=== PATIENT | female | born 1945 | race Caucasian/White ===

== ENCOUNTER 2019-03-19 05:53 | Inpatient (IN) | payer MEDICARE ==
[2019-03-14 15:15] LABS: BASOPHILS % 0.6 % (0.0-1.0); EOSINOPHILS # (AUTO) 0.1 (0.0-0.4); EOSINOPHILS % 1.3 % (0.0-6.0); HEMATOCRIT 39.8 % (34.2-44.1); HEMOGLOBIN 13.5 g/dL (12.0-16.0); LYMPHOCYTES # (AUTO) 1.7 (1.0-3.2); LYMPHOCYTES % 26.3 % (18.0-39.1); MEAN CORPUSCULAR HEMOGLOBIN 32.5 pg (28-32); MEAN CORPUSCULAR HGB CONC 33.9 g/dL (31-35); MEAN CORPUSCULAR VOLUME 95.9 fL (81-99); MONOCYTES # (AUTO) 0.6 (0.2-0.8); NEUTROPHILS # (AUTO) 3.9 (2.1-6.9); NEUTROPHILS % 61.5 % (38.7-80.0); PLATELET COUNT 208 x10e3/uL (140-360); RED BLOOD COUNT 4.15 x10e6/uL (3.6-5.1); RED CELL DISTRIBUTION WIDTH 12.8 % (11.7-14.4)
[2019-03-14 15:26] LABS: INR 0.91; PROTHROMBIN TIME 12.7 seconds (11.9-14.5)
[2019-03-14 15:27] LABS: PARTIAL THROMBOPLASTIN TIME 32.8 seconds (23.8-35.5)
[2019-03-14 15:29] LABS: ANION GAP 11.9 mmol/L (8-16); BLOOD UREA NITROGEN 13 mg/dL (7-26); BUN/CREATININE RATIO 16 (6-25); CARBON DIOXIDE 26 mmol/L (22-29); CHLORIDE 99 mmol/L (98-107); CREATININE, SERUM 0.82 mg/dL (0.57-1.11); EST GLOMERULAR FILTRATION RATE > 60 ML/MIN (60-); GLUCOSE 96 mg/dL (74-118); POTASSIUM 3.9 mmol/L (3.5-5.1); SODIUM 133 mmol/L (136-145)
--- NOTE | 2019-03-14 17:27 | Diagnostic Imaging Report ---
EXAMINATION: CHEST 2 VIEWS INDICATION: Pre-operative COMPARISON: None FINDINGS: LINES/TUBES:None LUNGS:The lungs are well-inflated. No focal consolidation or pulmonary edema. PLEURA:No pleural effusion or pneumothorax. MEDIASTINUM:The cardiomediastinal silhouette appears normal in size and shape. BONES/SOFT TISSUES:No acute osseous injury. ABDOMEN:No free air under the diaphragm. IMPRESSION: No focal pneumonia or pulmonary edema. Signed by: Juan Alberto Hunter MD on 03/14/2019 5:24 PM
[~2019-03-19] VITALS: Ht 160 cm; Wt 90.7 kg
[~2019-03-19 05:53] MED LIST: LATANOPROST2.5 ML OP
--- OUTSIDE RECORDS SUMMARY | 2019-03-19 06:01 | XMS REPORT ---
Author Author [facility] Address Unknown Phone Unavailable Care Team Providers Care Lap Welder Name Role Phone GARY ORTIZ Unavailable Unavailable Problems This patient has no known problems. Allergies, Adverse Reactions, Alerts This patient has no known allergies or adverse reactions. Medications This patient has no known medications. Results Test Description Test Time Test Comments Text Results Atomic Results Result Comments CHEST 2 VIEWS 2019-03-14 17:23:00 [place] [address] Patient Name: SID ALBRIGHT MR #: [id number] : 1945 Age/Sex: 73/F Req #: [id number] Adm Physician: Ordered by: GARY ORTIZ MD Report #: [id number] Location: OR Room/Bed: Procedure: [id number] DX/CHEST 2 VIEWS Exam Date: 03/14/19 Exam Time: 1535 REPORT STATUS: Signed EXAMINATION: CHEST 2 VIEWS INDICATION: Pre-operative COMPARISON: None FINDINGS: LINES/TUBES:None LUNGS:The lungs are well-inflated. No focal consolidation or pulmonary edema. PLEURA:No pleural effusion or pneumothorax. MEDIASTINUM:The cardiomediastinal silhouette appears normal in size and shape. BONES/SOFT TISSUES:No acute osseous injury. ABDOMEN:No free air under the diaphragm. IMPRESSION: No focal pneumonia or pulmonary edema. Signed by: Jocelyn Shi MD on 03/14/2019 5:24 PM Dictated By: JOCELYN SHI MD 23 Transcribed By: RONNI Leblanc on 03/14/191723 COPY TO: GARY ORTIZ MD BREAST ULTRASOUND RIGHT 2019-02-12 15:24:43 - BREAST ULTRASOUND RIGHTULTRASOUND OF RIGHT BREAST AND RIGHT AXILLA: 02/12/2019CLINICAL: Right breast itching sensation. Comparison is made to exam dated 02/12/2019 mammogram - [facility]. Color flow, real-time, and Doppler ultrasound of the right breast and axilla were performed. Mooney scale images of the real-time examination were reviewed. No abnormalities were seen sonographically in the right breast or the right axilla. The patient reports that her symptoms have resolved.IMPRESSION: BENIGN There is no sonographic evidence of malignancy. Resume annual screening mammography in one year. Ha Wolfe M.D. et/:02/12/2019 15:24:43 Entry: [place] - 02/13/2019 14:40:25Imaging Technologist: Loni Mora, [facility] sent: BIRADS 1-2 Combo FU Letter Ultrasound BI-RADS: 2 Benign DIAG MAMM BILATERAL ARTEMIO CAD DIGITAL 2019-02-12 15:23:54 - DIAG MAMM BILATERAL ARTEMIO CAD DIGITALBILATERAL DIGITAL DIAGNOSTIC MAMMOGRAM 3D/2D WITH CAD: 02/12/2019CLINICAL: Abnormal clinical breast exam. Digital breast tomosynthesis was performed in addition to routine CC and MLO views. Current mammographic images were evaluated by either a Smarty Ring M-Vu or a Bulu Box ImageChecker CAD (computer aided detection system). No prior exams were available for pedroi son. The tissue of both breasts is heterogeneously dense. This may lower the sensitivity of mammography. There is a benign calcification in the left breast. No suspicious mass, architectural distortion, malignant type calcification, or lymph node abnormality detected. IMPRESSION: INCOMPLETE: ADDITIONAL IMAGING EVALUATION NEEDEDNo mammographic evidence of malignancy. Proceed to same day ultrasound.Ha Wolfe M.D. et/:02/12/2019 15:23:54 Entry: [place] - 02/13/2019 14:40:06Imaging Technologist: Tiana HERNANDEZ, [facility] BI-RADS: 0 Incomplete: Additional Imaging Evaluation Needed
[2019-03-19] MEDS ORDERED: CLINDAMYCIN 300MG 50 ML IV ONE (06:06)
[2019-03-19] MEDS ORDERED: GENTAMICIN 80MG/NS 100 ML 200 ML IV ONE (06:06)
[2019-03-19] MEDS ORDERED: PIPER-TAZ 3.375 GM 50 ML ONE (06:58)
[2019-03-19] MEDS ORDERED: B&O 60MG R/S 60 MG SUPP PR ONE (07:02)
[2019-03-19] MEDS ORDERED: IOPAMIDOL 300MG/ML 50ML INFUS..BTL IV ONE (07:02)
[2019-03-19] MEDS ORDERED: BACITRACIN 50,000 UNIT VIAL ONE (07:09)
[2019-03-19] MEDS ORDERED: BUPIVACAINE 0.25%/EPI 30ML SDV INJ ONE (07:09)
[2019-03-19] MEDS ORDERED: INDIGOTINDISULFONATE SODIUM 8 MG/1 ML IJ ONE (07:10)
[2019-03-19] MEDS ORDERED: SILVER SULFADIAZINE 50GM CREAM ONE (07:11)
[2019-03-19] MEDS ORDERED: ONDANSETRON HCL INJ 2MG/ML 2ML 2 MG/ML VIAL IV PRN (10:00)
[2019-03-19] MEDS ORDERED: MORPHINE SULFATE 1 MG/ML 30ML PCA IV PRN (10:00)
[2019-03-19] MEDS ORDERED: NALOXONE HCL INJ 0.4 MG/ML AMP IV PRN (10:00)
[2019-03-19] MEDS ORDERED: DIPHENHYDRAMINE HCL 25 MG CAP PO PRN (10:00)
--- NOTE | 2019-03-19 11:24 | NUR ---
Patient admitted to unit from PACU. Patient is post op bladder sling and cystocele repair. Vag packing in place. Some drainage noted. No c/o pain at this time. Lung ansari clear to auscultation. Bowel sounds present but hypoactive. No edema noted. Reyes catheter in place with clear pale urine noted. No s/s of distress noted. Right hand IV in place. IV fluids infusing. Patient tolerating clear liquids
[2019-03-19 12:04] VITALS: BP 126/63
[2019-03-19 12:13] VITALS: BP 126/63
[2019-03-19] MEDS: D5.45%NS/KCL 20MEQ 1,000 ML IV SCH ×2 (14:15→20:00)
[2019-03-19] MEDS ORDERED: ONDANSETRON HCL INJ 2MG/ML 2ML 2 MG/ML VIAL ONE (14:26)
[2019-03-19] MEDS ORDERED: PROPOFOL IV EMULSION 10 MG/ML 20 ML VIAL ONE (14:26)
[2019-03-19] MEDS ORDERED: EPHEDRINE SULFATE INJ 50 MG/10 ML SYR ONE (14:26)
[2019-03-19] MEDS ORDERED: LIDOCAINE HCL 2% LOCAL INJ 5 ML SDV VIAL INJ ONE (14:26)
[2019-03-19] MEDS ORDERED: ACETAMINOPHEN 1000 MG/100 ML IV ONE (14:26)
[2019-03-19] MEDS ORDERED: DEXAMETHASONE SOD PHOS INJ 4 MG/ML VIAL ONE (14:26)
[2019-03-19] MEDS ORDERED: SEVOFLURANE INHAL SOLN 250 ML PEN BTL ONE (14:26)
[2019-03-19] MEDS: PIPER-TAZ 3.375 GM 50 ML IV SCH ×2 (14:33→21:27)
[2019-03-19] MEDS ORDERED: FENTANYL CITRATE/PF 100MCG/2 ML INJ ONE (15:10)
[2019-03-19] MEDS: CLINDAMYCIN 300MG 50 ML IV SCH (16:20)
[2019-03-19 16:45] VITALS: BP 129/68
[2019-03-19] MEDS: DOCUSATE SODIUM 100 MG CAP PO SCH (17:39)
--- NOTE | 2019-03-19 19:00 | NUR ---
Bed side shift report taken from morning RnGovind in the bed.clear urine draining.stable condition.
[2019-03-19 20:00] VITALS: BP 114/62
[2019-03-19 20:53] VITALS: BP 114/62
[2019-03-19 23:56] VITALS: BP 100/56
[2019-03-20] VITALS (7 sets, daily range): BP systolic 112–129; BP diastolic 67–82
--- NOTE | 2019-03-20 00:04 | NUR ---
Assessment done.no resp.distress.pericare given.vag.pack in place.incision site is covered with band aid.iv fluid and morphine skate boarder infusing to right hand.Bed side shift report taken from morning Rn.Christaeing in the bed.family member at bed side.stable condition.
[2019-03-20] MEDS: CLINDAMYCIN 300MG 50 ML IV SCH ×3 (00:10→16:50)
[2019-03-20] MEDS: D5.45%NS/KCL 20MEQ 1,000 ML IV SCH ×3 (00:41→05:04)
--- NOTE | 2019-03-20 02:49 | Operative Report ---
DATE OF PROCEDURE: 03/19/2019 SURGEON: Vipul Barr MD PREOPERATIVE DIAGNOSES: 1. Large grade 4 cystocele. 2. Impending stress incontinence: 3. Urinary tract infection. POSTOPERATIVE DIAGNOSES: 1. Large grade 4 cystocele. 2. Impending stress incontinence: 3. Urinary tract infection. 4. Unavoidable cystotomy. OPERATION PERFORMED: 1. Complicated repair of cystocele (repair made complicated by the patient's severity of her cystocele and a tremendous amount of scarring and anatomical distortion in the area from previous gynecological surgery). 2. Utilization of graft and cystocele repair. 3. Pubovaginal sling utilizing homograft. 4. Cystorrhaphy (performed from the bladder opening). 5. Cystourethroscopy with bilateral ureteral catheterization and retrograde ureteropyelography (separate procedure performed for the urinary tract infections). 6. Interpretation of retrograde ureteropyelography. 7. Supervision of fluoroscopy, no radiologist present. 8. Interpretation of cystography. REFRIGERATOR ROOM CLERK: Jane Barr MD CLINICAL SUMMARY: Rosie Oliver is a 73-year-old woman with the above preoperative diagnoses. She is brought for the above procedure. She is aware of the risks of bleeding, infection, injury to adjacent structures, need for additional procedures and elected to proceed. OPERATIVE PROCEDURE IN DETAIL: Informed consent was verified. Rosie Oliver was properly identified, taken to the operating room, placed on the operating room table in supine position. Anesthesia was uneventfully begun. The patient was then carefully and gently repositioned in dorsal lithotomy position with all pressure points well padded. Her abdomen, genitalia, and perineum were shaved, prepared, and draped in usual sterile fashion. Labial stay sutures were used. Vaginal speculum was placed. Marcaine with epinephrine was utilized to infiltrate submucosally to the anterior vaginal wall. A midline incision was then made and this incision was extended. The patient's cystocele was very large. Once the incision was made, it was obvious that there was rather significant amount of scarring and there was a significant amount of distortion of the anatomy in the vaginal wall from prior gynecological surgery. We very slowly and tediously carried out the dissection in order to try to create appropriate tissue planes. This was not fully accomplishable initially. As we dissected laterally on the left hand side, a gush of urine was noted. We then utilized sharp dissection to isolate that portion of the bladder and continued our dissection and our mobilization of the entire cystocele. We also pierced laterally in through the endopelvic fascia bilaterally and into the space of Retzius. The cystotomy was created with the finger and done with a sharp instrument while trying to peel the bladder that was plastered off the pelvic sidewall on the left hand side. The opening was identified, isolated, and reapproximated with 2-0 chromic suture in running fashion in 2 layers. This provided a watertight closure. We verified that this was a watertight repair. Copious irrigation was performed with an antibiotic irrigant. We then proceeded with performing cystocele repair. Plication type repair was performed approximating the two edges of the endopelvic fascia and bringing the bladder back to its normal anatomical position. Care was taken to avoid injury to the urethra. We completed the plicating type of cystocele repair from the cephalad most extent of the vaginal dissection to the region of the bladder neck. This cystocele repair provided yet a 3rd layer closure by fully covering the repair of the bladder. This made us feel fairly confident that placing a biological graft would not pose significant risk in light of opening the bladder with what was clear urine. The fascia sari was rehydrated with antibiotic irrigant and cut to shape. Helical PDS suture was then placed through each end. The bladder was ensured to be drained with Reyes catheter. We utilized the Aicenta needle system to bilaterally donohue through the entire abdominal wall musculature and then dragged along with it on either side of the suture repair of PDS suture. The sling was then secured into appropriate position with six interrupted chromic sutures. Thus, we ensured that it remained providing coverage and support and will minimize its probability of migration. Once the graft was put in, copious irrigation was performed. We then utilized the lateral suture passer of Yachia needles to take one strand of each PDS suture and tunneled it subcutaneously suprapubically to join its contralateral counterpart. The sling sutures were then tied down to the level of the skin and not to allowed to fall deep within the suprapubic fat pad thus ensuring a non-lifting, non-constricting sling. Copious irrigation was performed of all incisions. The vaginal wall was trimmed minimally. The vaginal incision was then approximated with heavy Vicryl suture in running fashion. The two stab wounds in the suprapubic region were approximated with 4-0 Monocryl suture. Reyes catheter was then withdrawn and cystoscopy was performed. Panendoscopy of the bladder revealed no suspicious mucosal lesions. No tumors or trabeculations were noted. We noted the area of the repair, which was lateral and distal to the right ureteral orifice. A ureteral catheter was used to cannulate each ureter and retrograde ureteral pyelograms were performed. Interpretation of retrograde ureteropyelography; contrast was instilled in retrograde fashion bilaterally. The right kidney caudal to the left kidney filled significantly. There was J hooking noted bilaterally. There was some fullness to the left side collecting system, but unobstructed drainage was observed fluoroscopically. The cystoscope was withdrawn. A Reyes catheter was placed. Contrast was then injected and performed cystography. Interpretation cystography; bladder wall was mildly trabeculated throughout. The Reyes catheter was in good position. It is impossible to online marketing coordinator reflux in this situation where the patient has had previous retrograde ureteropyelography. The calices were sharp. Drainage films from the retrograde pyelograms revealed there was a more capacious collecting system on the right, but all calices were delicate. The Reyes catheter was placed to drainage bag. Irrigation was again performed. Band-Aids were applied to the suprapubic stab wounds. Vaginal packing with Silvadene cream was then placed. Stay sutures were removed. The patient was uneventfully reversed from anesthesia and taken to recovery room in stable condition. No complications to the procedure. She tolerated the procedure well. We will proceed with routine postoperative care and lifelong urological followup. We will plan to leave the Reyes catheter in place for 10 to 14 days. Vipul Barr MD [place]/MODL /[id number] cc: Dr. Marissa Sylvester
[2019-03-20] MEDS: PIPER-TAZ 3.375 GM 50 ML IV SCH ×3 (05:50→21:20)
[2019-03-20 05:53] LABS: BASOPHILS % 0.1 % (0.0-1.0); EOSINOPHILS % 0.2 % (0.0-6.0); HEMATOCRIT 35.3 % (34.2-44.1); HEMOGLOBIN 11.9 g/dL (12.0-16.0); LYMPHOCYTES # (AUTO) 1.9 (1.0-3.2); LYMPHOCYTES % 21.8 % (18.0-39.1); MEAN CORPUSCULAR HEMOGLOBIN 32.4 pg (28-32); MEAN CORPUSCULAR HGB CONC 33.7 g/dL (31-35); MEAN CORPUSCULAR VOLUME 96.2 fL (81-99); MONOCYTES # (AUTO) 0.7 (0.2-0.8); MONOCYTES % 8.1 % (4.4-11.3); NEUTROPHILS # (AUTO) 5.9 (2.1-6.9); NEUTROPHILS % 68.9 % (38.7-80.0); PLATELET COUNT 186 x10e3/uL (140-360); RED BLOOD COUNT 3.67 x10e6/uL (3.6-5.1); RED CELL DISTRIBUTION WIDTH 12.7 % (11.7-14.4)
--- NOTE | 2019-03-20 06:00 | NUR ---
Assisted to use rest room for BM.vaginal pack came out itself.had very small amount of bm.
[2019-03-20 06:06] LABS: ANION GAP 10.6 mmol/L (8-16); BLOOD UREA NITROGEN 7 mg/dL (7-26); BUN/CREATININE RATIO 10 (6-25); CALCIUM 8.1 mg/dL (8.4-10.2); CARBON DIOXIDE 25 mmol/L (22-29); CHLORIDE 104 mmol/L (98-107); CREATININE, SERUM 0.73 mg/dL (0.57-1.11); EST GLOMERULAR FILTRATION RATE > 60 ML/MIN (60-); GLUCOSE 116 mg/dL (74-118); POTASSIUM 3.6 mmol/L (3.5-5.1); SODIUM 136 mmol/L (136-145)
--- NOTE | 2019-03-20 06:56 | NUR ---
Bed side shift report given to the oncoming Rn.stable condition.
--- NOTE | 2019-03-20 07:29 | NUR ---
Rcvd patient in report this am. Patient is asleep in bed at this time. No s/s of distress noted
[2019-03-20] MEDS: DOCUSATE SODIUM 100 MG CAP PO SCH ×2 (08:25→16:50)
[2019-03-20] MEDS ORDERED: MORPHINE SULFATE INJ 4 MG/ML INJ 1ML IV PRN (08:45)
[2019-03-20] MEDS: SODIUM CHLORIDE 0.9% 1000ML 1,000 ML IV SCH ×2 (10:25→17:21)
--- NOTE | 2019-03-20 12:21 | NUR ---
Patient is AAOx3. Post op cystocele repair. Reyes cath in place. Clear urine noted. No c/o pain. Lung ansari clear to auscultation. Bowel sounds present x4 and active. Patient ambulating with assist. No s/s of distress noted
[2019-03-20] MEDS: ACETAMINOPHEN/CODEINE 300MG - 30MG TAB PO PRN ×2 (12:33→16:51)
--- NOTE | 2019-03-20 15:11 | History and Physical ---
THERAPEUTIC STRATEGY LEAD: Vipul Barr MD. SURGEON: Vipul Barr MD. The patient is status post grade 4 cystocele repair. HISTORY OF PRESENT ILLNESS: The patient is a 73-year-old female, status post cystocele repair. The patient is status post postop day #1. The patient is currently stable. Please review operative note done by Dr. Vipul Barr. The patient has severe scarring from prior RUBBER TRIMMER surgery on findings of the operated operation. The patient had cystotomy and subsequent repair. She also has a cystocele repair as well. The patient is otherwise stable now. She is comfortable. No complication postoperative care. PAST MEDICAL HISTORY: Grade 4 cystocele, urinary stress incontinent, strabismus, and chronic lower back pain. PAST SURGICAL HISTORY: L4-L5 diskectomy, appendectomy, total abdominal hysterectomy, and the patient is now status post cystocele repair and cystotomy repair. SOCIAL HISTORY: The patient does not smoke or use alcohol. No regular drugs. ALLERGIES: WHEAT. HOME MEDICATIONS: List is reviewed. REVIEW OF SYSTEMS: As mentioned above. PHYSICAL EXAMINATION: VITAL SIGNS: Temperature is 98, blood pressure 114/76, pulse rate is 80, and respirations 18. GENERAL: The patient is not in acute distress. She is awake. HEENT: Normocephalic and atraumatic. Pupils reactive. Anicteric. NECK: Supple grossly. PULMONARY: Clear. CARDIOVASCULAR: Regular rate and rhythm. ABDOMEN: Soft, status post cystocele repair. EXTREMITIES: No cyanosis or edema. Reyes catheter in place. NEUROLOGIC: No gross focal deficit. LABORATORY DATA: WBC is 8.5, hemoglobin 12, hematocrit 32, and platelet 186. Chemistry; sodium 136, potassium 3.6, chloride 104, bicarb 25, BUN is 7, creatinine is 0.7, and glucose 116. IMPRESSION: 1. Postoperative day #1 status post grade 4 cystocele repair. 2. Cystotomy. 3. Stress incontinence. PLAN: Continue with postoperative care. We will discontinue FOREIGN EXCHANGE CLERK. Increase activity as tolerated. We will monitor the patient closely and repeat lab work. MD NELSY Solorzano/MODL /[id number]
--- NOTE | 2019-03-20 16:10 | NUR ---
Nutrition Screen Note RD Recommendation for Physician: - Continue current diet Plan of Care: RD following, monitoring for tolerance and adequacy Nutrition reason for involvement: Nutrition Risk Trigger- MST2 Primary Diagnose(s): cystocele PMH: no H&P Ht: 63 in Wt: 200 lb BMI: 35.4 kg/m2 IBW: [address] Assessment: (03/20) 73 YOF admitted for cystocele, seen today per MST2 screen. Pt reports good appetite and po intake currently and QUALITY ASSURANCE CALIBRATOR. Pt denies any N/V/C/D. Pt denies any wt loss. Chart reviewed. Labs and meds reviewed. No nutritional concerns at this time, will continue to monitor. Current Diet: Regular Malnutrition Evaluation (03/20/19) The patient does not meet criteria for a specified degree of malnutrition at this time. Will re-evaluate at follow-up as appropriate. Diet Education Needs Assessment: Diet education not indicated. Diet tolerance: tolerating po Nutrition Care Level: low Signed: Marleny Prado RD, LD, [facility]
--- NOTE | 2019-03-20 22:00 | NUR ---
Ambulates in the [address].had bowel movement.no pain voiced.pericare given.clear urine draining.bed locked and in lowest position.phone and call light within reach.instructed to call for assistance as needed.
[2019-03-21] MEDS: CLINDAMYCIN 300MG 50 ML IV SCH ×2 (00:13→08:44)
[2019-03-21 00:35] VITALS: BP 118/75
[2019-03-21] MEDS: SODIUM CHLORIDE 0.9% 1000ML 1,000 ML IV SCH ×2 (05:01→14:45)
[2019-03-21 05:28] LABS: BASOPHILS % 0.5 % (0.0-1.0); EOSINOPHILS # (AUTO) 0.1 (0.0-0.4); HEMATOCRIT 36.1 % (34.2-44.1); HEMOGLOBIN 12.5 g/dL (12.0-16.0); LYMPHOCYTES # (AUTO) 1.6 (1.0-3.2); LYMPHOCYTES % 27.1 % (18.0-39.1); MEAN CORPUSCULAR HEMOGLOBIN 33.2 pg (28-32); MEAN CORPUSCULAR HGB CONC 34.6 g/dL (31-35); MEAN CORPUSCULAR VOLUME 95.8 fL (81-99); MONOCYTES # (AUTO) 0.5 (0.2-0.8); MONOCYTES % 8.9 % (4.4-11.3); NEUTROPHILS # (AUTO) 3.6 (2.1-6.9); NEUTROPHILS % 62.2 % (38.7-80.0); PLATELET COUNT 175 x10e3/uL (140-360); RED BLOOD COUNT 3.77 x10e6/uL (3.6-5.1); RED CELL DISTRIBUTION WIDTH 12.9 % (11.7-14.4)
[2019-03-21] MEDS: PIPER-TAZ 3.375 GM 50 ML IV SCH ×2 (05:31→14:26)
[2019-03-21 05:46] LABS: ANION GAP 11.9 mmol/L (8-16); BLOOD UREA NITROGEN 8 mg/dL (7-26); BUN/CREATININE RATIO 11 (6-25); CALCIUM 8.2 mg/dL (8.4-10.2); CARBON DIOXIDE 24 mmol/L (22-29); CHLORIDE 107 mmol/L (98-107); CREATININE, SERUM 0.76 mg/dL (0.57-1.11); EST GLOMERULAR FILTRATION RATE > 60 ML/MIN (60-); GLUCOSE 98 mg/dL (74-118); POTASSIUM 3.9 mmol/L (3.5-5.1); SODIUM 139 mmol/L (136-145)
[2019-03-21] MEDS: ACETAMINOPHEN/CODEINE 300MG - 30MG TAB PO PRN ×2 (06:19→15:37)
--- NOTE | 2019-03-21 07:01 | NUR ---
Bed side shift report given to the oncoming Rn.stable condition.
--- NOTE | 2019-03-21 07:11 | NUR ---
Rcvd patient in report this am. Patient is awake in bed at this time. No s/s of distress noted. Reyes in place. Clear urine noted.
[2019-03-21 07:50] VITALS: BP 123/92
[2019-03-21] MEDS: DOCUSATE SODIUM 100 MG CAP PO SCH (08:44)
[2019-03-21 08:45] VITALS: BP 123/92
[2019-03-21 11:40] VITALS: BP 139/88
[2019-03-21] MEDS ORDERED: ONDANSETRON HCL 4 MG ORAL DISINTEGRATING TAB PO PRN (11:45)
--- NOTE | 2019-03-21 15:42 | NUR ---
Removed IV from right hand. Pressure dressing applied
[2019-03-21] MEDS ORDERED: TYLENOL WITH C1 EACH PO (15:50)
[2019-03-21] MEDS ORDERED: LEVAQUIN500 MG PO (15:50)
--- NOTE | 2019-03-21 16:13 | NUR ---
Patient discharged from facility to home. Patient assisted out via staff. Reviewed all rx's, follow up appts, and how to change out the walker from regular bag and leg bag. Patient and family member verbalized understanding. No s/s of distress noted
== END 2019-03-21 16:10 | disposition home or self-care (01) | DRG 748 ==
LOC: OR 05:53 → PACU V 09:51 → MED/SURG 11:33
PROVIDERS: ADMIT Internal Medicine; ATTEND Internal Medicine
PROC: 0TJB8ZZ Inspection of Bladder, Via Natural or Artificial Opening Endoscopic (ICD-10-PCS; 2019-03-19)
PROC: BT141ZZ Fluoroscopy of Kidneys, Ureters and Bladder using Low Osmolar Contrast (ICD-10-PCS; 2019-03-19)
PROC: 0JUC0JZ Supplement of Pelvic Region Subcutaneous Tissue and Fascia with Synthetic Substitute, Open Approach (ICD-10-PCS; principal; 2019-03-19 08:00)
PROC: 0TSD0ZZ Reposition Urethra, Open Approach (ICD-10-PCS; 2019-03-19 08:00)
DX: N81.10 Cystocele, unspecified (principal); N39.0 Urinary tract infection, site not specified; N39.3 Stress incontinence (female) (male); Z91.018 Allergy to other foods; H40.9 Unspecified glaucoma; E11.9 Type 2 diabetes mellitus without complications; K76.89 Other specified diseases of liver; N28.9 Disorder of kidney and ureter, unspecified; N81.6 Rectocele
CPT/HCPCS: 36415; 71046; 74420; 80048; 85025; 85610; 85730; 93005; C1758; J1100; J1580; J2001; J2270; J2405; J2543; J3010; J7030

== ENCOUNTER → 2019-04-02 | Outpatient (CLI) | payer MEDICARE ==
[~2019-04-02] MED LIST changes: +IOTHALAMATE MEGLUMINE 17.20% 250 ML BTL ONE; +LEVAQUIN500 MG PO; +TYLENOL WITH C1 EACH PO
--- NOTE | 2019-04-02 15:49 | Diagnostic Imaging Report ---
Fluoroscopic cystogram TURBINATED BONE GRINDER(S): Juan Alberto Hunter MD Comparison: None. Fluoroscopy Time: 0.4 minutes Total dose: 14.1 mGy Procedure: Pants Presser images were obtained. Cysto-conray contrast material was used to fill the bladder via the indwelling Reyes catheter. Multiple images in multiple projections were obtained, demonstrating no evidence of postoperative leak. The Reyes catheter was subsequently removed. IMPRESSION: No postoperative leak. Successful removal of indwelling Reyes catheter following cystography. Signed by: Juan Alberto Hunter MD on 04/02/2019 3:45 PM
== END ==
LOC: DX 13:45
PROVIDERS: ATTEND Urology
DX: N81.10 Cystocele, unspecified (principal); N81.89 Other female genital prolapse; N81.6 Rectocele
CPT/HCPCS: 74430; Q9958